=== PATIENT | male | born 1990 | race Caucasian/White ===

== ENCOUNTER 2018-02-27 15:46 | Emergency (ER) | payer OTHER ==
[2018-02-27] MEDS ORDERED: Ondansetron ODT TAB* 4 MG PO ONE (16:16)
[2018-02-27 17:03] LABS: ABS Basophils 0 10^3/ul (0-0.2); ABS Eosinophils 0.1 10^3/ul (0-0.6); ABS Lymphocytes 1.4 10^3/ul (1.0-4.8); ABS Nucleated RBC 0 10^3/ul; Eosinophil % 2.6 % (0-6); Hematocrit 38 % (42-52); Hemoglobin 12.8 g/dl (14.0-18.0); Lymphocyte % 25.9 % (25-47); Mean Corpuscular HGB Conc 34 g/dl (31-36); Mean Corpuscular Hemoglobin 28 pg (27-31); Mean Corpuscular Volume 81 fL (80-94); Mean Platelet Volume 7.9 um3 (7.4-10.4); Nucleated Red Blood Cells % 0.1; Platelet Count 187 10^3/ul (150-450); Red Blood Count 4.66 10^6/ul (4.0-5.4); Red Cell Distribution Width 14 % (10.5-15); White Blood Count 5.6 10^3/ul (3.5-10.8)
[2018-02-27 17:23] LABS: EGFR Non-African American 120.3 (>60)
[2018-02-27] MEDS ORDERED: Acetaminophen TAB* 325 MG PO ONE (17:45)
--- NOTE | 2018-02-27 17:47 | ED ---
HPI Febrile Illness - HPI Summary HPI Summary: 27-year-old male presents with nausea and vomiting for the past couple days. He states he developed fevers mostly at night. He denies any lymphadenopathy. He denies any neck stiffness. He admits to occasional headache. He denies any photophobia. denies any diarrhea. Denies any cough. She denies any chest pain or SOB. He denies any painful urination. No one else sick. He denies any sinus congestion. He states he's been able to drink water without symptoms. He has no medical conditions. - History of Current Complaint Chief Complaint: EDFever Time Seen by Provider: 02/27/18 17:36 Pain Intensity: 2 - Allergy/Home Medications Allergies/Adverse Reactions: Allergies Allergy/AdvReac Type Severity Reaction Status Date / Time No Known Allergies Allergy Verified 01/07/15 11:29 PMH/Surg Hx/FS Hx/Imm Hx Endocrine/Hematology History: Denies: Hx Anticoagulant Therapy, Hx Diabetes, Hx Thyroid Disease Cardiovascular History: Denies: Hx Hypertension, Hx Pacemaker/ICD Respiratory History: Denies: Hx Asthma, Hx Chronic Obstructive Pulmonary Disease (COPD) History: Denies: Hx Renal Disease Neurological History: Denies: Hx Dementia, Hx Seizures Psychiatric History: Denies: Hx Substance Abuse - Immunization History Date of Tetanus Vaccine: PT STATES UNSURE Date of Influenza Vaccine: NONE Infectious Disease History: No Infectious Disease History: Denies: Hx Hepatitis, Hx Human Immunodeficiency Virus (HIV), Traveled Outside the [place] in Last 30 Days - Family History Known Family History: Negative: Diabetes - Social History Alcohol Use: Rare Substance Use Type: Reports: None, Marijuana Substance Use Comment - Amount & Last Used: 01/06/15 Smoking Status (MU): Current Every Day Smoker Review of Systems Positive: Fever Negative: Chest Pain Negative: Shortness Of Breath Positive: Vomiting, Nausea. Negative: Abdominal Pain All Other Systems Reviewed And Are Negative: Yes Physical Exam Triage Information Reviewed: Yes Vital Signs On Initial Exam: Initial Vitals Temp Pulse Resp BP Pulse Ox 99.9 F 91 18 117/74 99 02/27/18 15:50 02/27/18 15:50 02/27/18 15:50 02/27/18 15:50 02/27/18 15:50 Vital Signs Reviewed: Yes Appearance: Positive: Well-Appearing Skin: Positive: Warm, Dry Head/Face: Positive: Normal Head/Face Inspection Eyes: Positive: Normal, EOMI, RITA, Conjunctiva Clear ENT: Positive: Normal ENT inspection, Pharynx normal, TMs normal Respiratory/Lung Sounds: Positive: Clear to Auscultation, Breath Sounds Present Cardiovascular: Positive: Normal, RRR Abdomen Description: Positive: Nontender, Soft Bowel Sounds: Positive: Present Musculoskeletal: Positive: Normal Neurological: Positive: Normal Psychiatric: Positive: Normal Diagnostics - Vital Signs Vital Signs Temp Pulse Resp BP Pulse Ox 02/27/18 15:50 99.9 F 91 18 117/74 99 - Laboratory Lab Results: Lab Results 02/27/18 02/27/18 Range/Units 16:55 16:55 WBC 5.6 (3.5-10.8) 10^3/ul RBC 4.66 (4.0-5.4) 10^6/ul Hgb 12.8 L (14.0-18.0) g/dl Hct 38 L (42-52) % MCV 81 (80-94) fL MCH 28 (27-31) pg MCHC 34 (31-36) g/dl RDW 14 (10.5-15) % Plt Count 187 (150-450) 10^3/ul MPV 7.9 (7.4-10.4) um3 Neut % (Auto) 52.7 (38-83) % Lymph % (Auto) 25.9 (25-47) % Humphreys % (Auto) 18.0 H (0-7) % Eos % (Auto) 2.6 (0-6) % Baso % (Auto) 0.8 (0-2) % Absolute Neuts (auto) 3.0 (1.5-7.7) 10^3/ul Absolute Lymphs (auto) 1.4 (1.0-4.8) 10^3/ul Absolute Monos (auto) 1.0 H (0-0.8) 10^3/ul Absolute Eos (auto) 0.1 (0-0.6) 10^3/ul Absolute Basos (auto) 0 (0-0.2) 10^3/ul Absolute Nucleated RBC 0 10^3/ul Nucleated RBC % 0.1 Sodium 134 L (139-145) mmol/L Potassium 3.5 (3.5-5.0) mmol/L Chloride 96 L (101-111) mmol/L Carbon Dioxide 31 (22-32) mmol/L Anion Gap 7 (2-11) mmol/L BUN 8 (6-24) mg/dL Creatinine 0.77 (0.67-1.17) mg/dL Est GFR ( Amer) 154.7 (>60) Est GFR (Non-Af Amer) 120.3 (>60) BUN/Creatinine Ratio 10.4 (8-20) Glucose 95 (70-100) mg/dL Calcium 8.5 L (8.6-10.3) mg/dL Result Diagrams: 02/27/18 16:55 02/27/18 16:55 Lab Statement: Any lab studies that have been ordered have been reviewed, and results considered in the medical decision making process. - Radiology chest Xray Interpretation: No Acute Changes Radiology Interpretation Completed By: Radiologist Course/Dx - Course Course Of Treatment: 27-year-old male presents with nausea and vomiting for the past couple days. He states he developed fevers mostly at night. He denies any lymphadenopathy. He denies any neck stiffness. He admits to occasional headache. He denies any photophobia. Denies any diarrhea. Denies any cough. She denies any chest pain or SOB. He denies any painful urination. No one else sick. He denies any sinus congestion. He states he's been able to drink water without symptoms. He has no medical conditions. On exam lungs clear to auscultation. Abdomen soft nontender. Gave Zofran and Tylenol feeling better. white blood cell count normal. He able to tolerate fluids so will have correct sodium with oral fluids. Chest x-ray normal. Flu negative. Humphreys negative. likely a viral syndrome. Told to follow up with primary if fevers do not resolve. Patient understands and agrees plan. - Febrile Illness Differential Diagnoses: Fever of Unknown Origin, Pneumonia, Viremia - Diagnoses Provider Diagnoses: Fever, Vomiting Discharge - Sign-Out/Discharge Documenting (check all that apply): Discharge/Admit/Transfer - Discharge Plan Condition: Good Disposition: HOME Prescriptions: Ondansetron ODT TAB* [Zofran 4 MG Odt TAB*] 4 mg PO Q6H PRN #16 tab.odt PRN Reason: Nausea Patient Education Materials: Acute Nausea and Vomiting (ED) Referrals: Mike Morales MD [Primary Care Provider] - Additional Instructions: Can take Zofran every 6 hours as needed for nausea Drink small amounts of fluid as tolerated When able to eat follow BRAT diet: Bananas, rice, applesauce, toast Take ibuprofen or Tylenol for pain or fever as needed every 6 hours Follow up with primary within 5 days Return to ED if develop fever that does not respond to Tylenol or ibuprofen, severe abdominal pain, or any new or worsening symptoms - Billing Disposition and Condition Condition: GOOD Disposition: HOME
--- NOTE | 2018-02-27 18:05 | RAD ---
INDICATION: Fever COMPARISON: None TECHNIQUE: PA and lateral dual-energy views were obtained. FINDINGS: Bones/Soft Tissues: There are no acute bony findings. Cardiomediastinal: The cardiomediastinal silhouette is normal. Lungs: There are no infiltrates. Pleura: There are no pleural effusions. Other: None IMPRESSION: NEGATIVE EXAMINATION.
[2018-02-27 19:00] VITALS: BP 106/61
== END 2018-02-27 18:58 | disposition home or self-care (01) ==
LOC: ED 15:46
DX: R11.2 Nausea with vomiting, unspecified (principal); R50.9 Fever, unspecified; F17.200 Nicotine dependence, unspecified, uncomplicated
CPT/HCPCS: 36415; 71046; 80048; 85025; 86140; 86308; 86618; 87502; 99282; A9270-GY